=== PATIENT | male | born 1950 | race American Indian/Alaskan Native ===

== ENCOUNTER 2016-11-24 08:02 | Day surgery (SDC) | payer MEDICARE ==
[~2016-11-24 08:02] MED LIST: ANCEF/STERILE WATER 2 GM/20 ML 2 GM/20 ML SYRINGE IV NR; LACTATED RINGERS 1,000 ML IV SCH; NACL 0.9% 1000 ML 1,000 ML IV SCH; PEPCID PO NR; SUBLIMAZE IV PRN
--- NOTE | 2016-11-24 08:42 | Anesthesia Day of Surgery ---
Anesthesia Day of Surgery - Day of Surgery Patient H&P Reviewed: Yes Patient is NPO: Yes Beta Blockers: Yes Cardiac Clearance: No Pulmonary Clearance: No
--- NOTE | 2016-11-24 08:43 | Anesthesia Consultation ---
Anesthesia Consult and Med Hx Date of service: 11/24/16 - Airway Anesthetic Teeth Evaluation: Chipped (front tooth chip/broken) ROM Head & Neck: Adequate Mental/Hyoid Distance: Adequate Mallampati Class: Class II Intubation Access Assessment: Probably Good - Pulmonary Exam CTA: Yes (clear blbs) - Cardiac Exam Cardiac Exam: RRR - Pre-Operative Health Status ASA Pre-Surgery Classification: ASA3 Proposed Anesthetic Plan: General - Pulmonary Hx Smoking: No Hx Sleep Apnea: No (MENA PRE SCREEN HIGH RISK) - Cardiovascular System Hx Hypertension: Yes (2005) - Gastrointestinal Hx Gastroesophageal Reflux Disease: No - Endocrine Hx Non-Insulin Dependent Diabetes: Yes - Other Systems Hx Cancer: No
[2016-11-24] MEDS ORDERED: ANCEF/STERILE WATER 2 GM/20 ML 2 GM/20 ML SYRINGE IV NR (09:00)
[2016-11-24] MEDS ORDERED: PEPCID PO NR (09:00)
[2016-11-24] MEDS ORDERED: XYLOCAINE MPF 2% ONE (09:57)
[2016-11-24] MEDS ORDERED: DIPRIVAN 10 MG/ML IV ONE (09:58)
[2016-11-24] MEDS ORDERED: SUBLIMAZE ONE (10:00)
[2016-11-24] MEDS ORDERED: DECADRON ONE (10:11)
[2016-11-24] MEDS ORDERED: ZEMURON IV ONE (10:14)
[2016-11-24] MEDS ORDERED: QUELICIN ONE (10:14)
[2016-11-24] MEDS ORDERED: MARCAINE 0.25% INFILTRATI ONE (10:46)
[2016-11-24] MEDS ORDERED: ZOFRAN ONE ×2 (10:56→11:21)
[2016-11-24] MEDS ORDERED: ePHEDrine SULFATE ONE (10:58)
[2016-11-24] MEDS ORDERED: ROBINUL ONE (11:01)
[2016-11-24] MEDS ORDERED: TORADOL ONE (11:31)
[2016-11-24] MEDS ORDERED: NEOSTIGMINE ONE (11:34)
--- NOTE | 2016-11-24 12:28 | Post Anesthesia Evaluation ---
- Post Anesthesia Evaluation Patient Participated: Yes Airway Patent: Yes Stable Respiratory Function: Yes Nausea/Vomiting: No Temp > 96.8F: Yes Pain Manageable: Yes Adequeate Hydration: Yes Anesthesia Complications: No Block Receding Appropriately: Not Applicable Patient on Ventilator: No
[2016-11-24] MEDS: DILAUDID IV PRN ×2 (12:32→12:45)
--- NOTE | 2016-11-24 12:53 | Post Operative Note ---
Date of procedure: 11/24/16 Pre-op diagnosis: RIH Post-op diagnosis: same Findings: pantaloon hernia Procedure: RIH repair Anesthesia: JAIR Surgeon: JOSEPH FELDMAN Estimated blood loss: minimal Pathology: none Condition: stable Disposition: PACU
--- NOTE | 2016-11-24 12:54 | Discharge Summary ---
Short Stay Discharge Plan Activity: other (no straining ) Weight Bearing Status: Full Weight Bearing Diet: low fat, low cholesterol, low salt Special Instructions: other (void x 2 priior to d/c ) Durable Medical Equipment Needed Upon Discharge: other (ice x 24 hrs ) Follow up with: BEATRICE MAYS MD [Primary Care Provider] - 7 Days JOSEPH FELDMAN MD [Staff Physician] - 10 Days
--- NOTE | 2016-11-24 13:00 | Post Anesthesia Evaluation ---
- Post Anesthesia Evaluation Patient Participated: Yes Airway Patent: Yes Stable Respiratory Function: Yes Temp > 96.8F: Yes Pain Manageable: Yes Adequeate Hydration: Yes Anesthesia Complications: No Block Receding Appropriately: Not Applicable
[2016-11-24] MEDS ORDERED: PERCOCET 5/325 PO ONE (13:36)
[2016-11-24 17:10] VITALS: BP 132/80
--- NOTE | 2016-11-25 01:49 | Admit Criteria Form ---
Admission Criteria Documentation: AMBULATORY SURGERY EXCEPTION CRITERIA Ambulatory Surgery Exception Criteria ( Place 'X' for any and all applicable criteria): Surgery or procedure performed on ambulatory basis may require inpatient stay for[A] ANY ONE of the following(1)(2)(3)(4)(5)(6)(7)(8)(9): [X] I. A preoperative situation, condition, or finding that warrants inpatient stay as indicated by ANY ONE of the following: [] a) Inpatient care needed because of severity of a disease or condition rather than the surgery (eg, severe cardiac or respiratory disease, severe infection) (15) (16 ) (17) (18) [] b) Emergent procedure (eg, angioplasty for acute ischemia)(19) [] c) Complex surgical approach or situation as indicated by ANY ONE of the following(3): [] i) Open approach needed instead of usual endoscopic, transcatheter, or other less invasive procedure [] ii) Difficult approach because of previous operation [] iii) Airway monitoring required after open neck procedures(20)(21) [] iv) Large mass requiring unusually extensive dissection [] v) Additional complicating feature requiring inpatient care (eg, drain management)(22(23): [X] d) Major surgery in a pt with high anesthetic risk as indicated by ANY ONE of the following (2)(3)(5)(7)(8): [X] i) ASA risk class III or higher (severe systemic disease impairing function) [D] [] ii) Advanced age (eg, older than 85 years)(14)(24) [] iii) Symptomatic heart failure(25) [] iv) Symptomatic asthma or COPD(8)(21) [] v) Morbid obesity with hemodynamic or respiratory problems(20)( 21)(26)(27) [] vi) Obstructive sleep apnea(20)(21) [] vii) Former premature infants who are younger than 60 weeks [] viii) High risk for severe postoperative abnormalities (eg, severe postoperative hypocalcemia after parathyroidectomy for severe hyperparathyroidism)(27)( 28) [] ix) Unstable angina(25) [] e) Drug-related risk requiring inpatient stay as indicated by ANY ONE of the following(5)(10)(14)(32)(33) [] i) Procedure requires discontinuing drugs or other therapy (eg , antiarrhythmic medication, antiseizure medication), which necessitates inpatient observation or treatment.(18)(31) [] ii) Major surgery and high risk drug use as indicated by ANY ONE of the following: [] 1) Active abuse of cocaine or similar drug [] 2) Monoamine oxidase inhibitor use [] 3) Other drug identified as posing risk [] f) Inadequate outpatient care situation as indicated by ANY ONE of the following(5)(10)(14)(32)(33) [] i) Patient lives remote from medical facility and procedure has urgent complication potential, and temporary nearby residence cannot be arranged [] ii) Patient will have postprocedure incapacitation and inadequate assistance at home, or alternative level of care cannot be arranged. [] iii) Patient will have long general anesthesia or procedure side effect resolution time, and competent person to stay with patient on first postoperative night at home or alternative level of care cannot be arranged. []iv) Other inadequate outpatient situation that cannot be handled by other means [] II. A perioperative event, condition, or finding that warrants inpatient stay as indicated by ANY ONE of the following (1)(2)(3): [] a) Inadequate physiologic recovery: cardiovascular, respiratory, or hemodynamic status not normal or near preoperative baseline(18) [] b) Hemodynamic instability [] c) Patient not alert with near normal or baseline mental status [] d) Temperature not normal or as expected and not appropriate for outpatient treatment of condition [] e) Ambulatory or appropriate activity level status not yet achieved post procedure [E](34)(35)(36) [] f) Operative site not appropriate (eg, unexpected or excessive drainage or bleeding) [] g) Postoperative effects not resolved or adequately managed (eg, significant pain or vomiting not appropriate for outpatient or next level of care)(10)(12) [] h) Complicating features requiring inpatient care as indicated by ANY ONE of the following(37): [] i) Severe complications of procedure (eg, bowel injury, airway compromise, vascular injury,severe hemorrhage) [] ii) Extensive (eg, dissection far beyond usual scope of procedure ) or prolonged (eg, 120 minutes beyond usual) surgery needed requiring inpatient postoperative care [] iii) Conversion to an open or complex procedure that requires inpatient care (eg, open vs laparoscopic cholecystectomy, abdominal vs vaginal hysterectomy)(38) [] iv) Comorbid condition or test result identified during or post procedure that requires inpatient care (7) [] v) Malignant hyperthermia(30) [] vi) Other complicating feature requiring inpatient care(22)(23) Inpatient stay may be needed until ALL of the following are present (1)(2)(3)(4) (5)(6)(10)(14)(33)(40): []a) Physiologic recovery: cardiovascular, respiratory, and hemodynamic status normal or near preoperative baseline []b) Hemodynamic stability []c) Patient alert, with near normal or baseline mental status []d) Temperature appropriate: patient afebrile or temperature appropriate for outpt treatment of condition []e) Activity level appropriate: ambulatory or appropriate activity level post procedure []f) Operative site appropriate as indicated by ALL of the following: []i) Site dry or with expected drainage []ii) Any blood noted is as expected for procedure. []g) Postoperative effects resolved or managed as indicated by ALL of the following: []i) Pain management appropriate for outpatient (or next level of) care(10) []ii) Minimal nausea and vomiting: if present, successfully treated with oral medication(12) []iii) Headache, dizziness, or drowsiness (if present) are mild. []h) Voiding status acceptable as indicated by ANY ONE of the following: []i) Voiding spontaneously []ii) No voiding but instructions given for follow-up in 6 to 8 hours []iii) Urinary catheter in place, and instructions given for follow-up []i) Complicating features requiring inpatient care manageable at a lower level of care(37) []j) Comorbid conditions manageable at a lower level of care(37) The original [employer] content created by [employer] has been revised. The portions of the content which have been revised are identified through the use of italic text or in bold, and [employer] has neither reviewed nor approved the modified material. All other unmodified content is copyright [employer]. Please see references footnoted in the original [employer] edition 2016 Admission Criteria Met: Yes
--- NOTE | 2016-12-02 09:19 | Operative Report ---
PREOPERATIVE DIAGNOSES: Right inguinal hernia, enlarging, painful. POSTOPERATIVE DIAGNOSES: Right inguinal hernia, enlarging, painful. PROCEDURE: Right inguinal hernia repair with plug and mesh. SURGEON: Tucker Meneses MD ANESTHESIA: General. FINDINGS: This is a gentleman with enlarging right inguinal hernia. He now presents for repair. All the risks and complications were discussed. DESCRIPTION OF PROCEDURE: The patient was brought to the operating room and placed on the operating table. Following induction of anesthesia, placed over the table, prepped and draped in usual sterile fashion. An oblique incision made over the right inguinal area, carried down through Cherie's fascia. We could see a big bulge coming through the external ring, which was very weak. The external ring was opened, nerve was not well visualized. It certainly was not over the cord. The cord was isolated with a big bulge. The entire floor was totally weakened. We were able to dissect the sac and the entire floor off of the surrounding scar tissue. Apparently, he has had this for a while because it was all adherent to the external oblique and pubic tubercle. In addition, the cord was adherent, which was dissected free and isolated with a [place] drain. Once the entire hernia was freed, we were able to not open the sac, we did not get into the , but it was all reduced with a plug which was secured and then a keyhole mesh secured it circumferentially. The patient tolerated the procedure well. We used a 2-0 Ethibond. Wound was copiously irrigated throughout the procedure with antibiotic solution. External oblique aponeurosis was loosely approximated to make sure there was not excess tension on the cord, superficial fascia with 3-0 chromic and skin with clips. The patient brought to recovery in stable condition. JOB# [id number] ANDREA/STEPHANIE
== END 2016-11-24 15:15 | disposition home or self-care (01) ==
LOC: OR 08:02
PROVIDERS: ATTEND Urology
DX: K40.90 Unilateral inguinal hernia, without obstruction or gangrene, not specified as recurrent (principal); I10 Essential (primary) hypertension; E11.9 Type 2 diabetes mellitus without complications
CPT/HCPCS: 49505; 82962; C1781; J0330; J0690; J1100; J1170; J1885; J2405; J2704; J2710; J3010; J7030